=== PATIENT | female | born 1955 | race Caucasian/White ===

== ENCOUNTER → 2016-05-04 | Outpatient (CLI) | payer MEDICARE, OTHER ==
--- NOTE | 2016-05-05 08:19 | MM ---
Reason for exam: screening (asymptomatic). Last mammogram was performed 1 year and 9 months ago. History: Patient is postmenopausal. Family history of breast cancer in aunt at age 50 and breast cancer in cousin at age 30. Physical Findings: A clinical breast exam by your physician is recommended on an annual basis and results should be correlated with mammographic findings. MG Screening Mammo w CAD Bilateral CC and MLO view(s) were taken. Prior study comparison: July 31, 2014, bilateral MG screening mammo w CAD. May 02, 2013, bilateral digital screening mammo w/CAD. The breast tissue is almost entirely fat. Finding: There are typically benign round calcifications in the left breast. There is no discrete abnormality. ASSESSMENT: Negative, BI-RAD 1 RECOMMENDATION: Routine screening mammogram of both breasts in 1 year.
== END | disposition home or self-care (01) ==
LOC: RADMAMWWP 09:23
PROVIDERS: ATTEND Internal Medicine
DX: Z12.31 Encounter for screening mammogram for malignant neoplasm of breast (principal)

== ENCOUNTER → 2017-09-10 | Outpatient (CLI) | payer MEDICARE, OTHER ==
--- NOTE | 2017-09-10 13:11 | XR ---
Lumbosacral spine HISTORY: Degenerative disc disease, low back pain 5 views of lumbosacral spine No comparisons There is multilevel spondylosis. Spinal curvature is noted. Lumbar vertebral bodies show preserved he ight. No evident spondylolysis. Anterolisthesis grade 1 suspected L4-5. Sclerosis present in the post erior elements of the lumbar spine. There is vacuum phenomenon present at L2-3. Bone mineralization i s reduced. IMPRESSION: Degenerative disc disease and facet arthropathy, spinal curvature. Osteopenia.
--- NOTE | 2017-09-13 09:27 | MM ---
Reason for exam: screening (asymptomatic). Last mammogram was performed 1 year and 4 months ago. History: Patient is postmenopausal. Family history of breast cancer in aunt at age 50 and breast cancer in cousin at age 30. Physical Findings: A clinical breast exam by your physician is recommended on an annual basis and results should be correlated with mammographic findings. MG Screening Mammo w CAD Bilateral CC, MLO, and XCCL view(s) were taken. Prior study comparison: May 04, 2016, bilateral MG screening mammo w CAD. July 31, 2014, bilateral MG screening mammo w CAD. There are scattered fibroglandular densities. Finding: There are typically benign round calcifications in the left breast. There is no discrete abnormality. ASSESSMENT: Benign, BI-RAD 2 RECOMMENDATION: Routine screening mammogram of both breasts in 1 year.
== END | disposition home or self-care (01) ==
LOC: RADMAMWWP 11:39
PROVIDERS: ATTEND Family Medicine
DX: Z12.31 Encounter for screening mammogram for malignant neoplasm of breast (principal); M51.36 Other intervertebral disc degeneration, lumbar region; M46.96 Unspecified inflammatory spondylopathy, lumbar region; M85.88 Other specified disorders of bone density and structure, other site; Z80.3 Family history of malignant neoplasm of breast
CPT/HCPCS: 72110; 77067